=== PATIENT | female | born 1990 | race Caucasian/White ===

== ENCOUNTER → 2018-09-15 08:33 | Outpatient (CLI) | payer BC, SELFPAY ==
[2018-09-15 08:05] VITALS: BMI 39.6
[2018-09-15 09:50] LABS: hCG Titer Quant., Serum < 1 mIU/mL (<9 non-preg)
== END ==
PROVIDERS: Visit Provider Obstetrics & Gynecology
DX: O46.90 Antepartum hemorrhage, unspecified, unspecified trimester (principal); Z3A.00 Weeks of gestation of pregnancy not specified
CPT/HCPCS: 36415; 84702; 86850; 86900

== ENCOUNTER → 2019-06-16 17:41 | Outpatient (CLI) | payer BC, SELFPAY ==
[2019-06-16 15:50] VITALS: BMI 39.1
== END ==
PROVIDERS: Referring Provider Obstetrics & Gynecology; Visit Provider Obstetrics & Gynecology
DX: Z34.80 Encounter for supervision of other normal pregnancy, unspecified trimester (principal)
CPT/HCPCS: 87086; 87088

== ENCOUNTER → 2019-07-17 11:29 | Outpatient (CLI) | payer BC, SELFPAY ==
[2019-07-17 10:14] VITALS: BMI 39.6
[2019-07-17 13:06] LABS: Absolute Lymphocyte Count 1.94 X10^3/uL (0.83-4.51); Basophil# 0.05 X10^3/uL; Basophil% 0.6 % (0-1); Eosinophils% 4.5 % (0-5); Hematocrit 40.1 % (37-47); Hemoglobin 13.1 g/dL (12.0-15.0); Lymphocyte # 1.94 X10^3/ul (4.0); Mean Corp Hgb Conc 32.7 g/dL (32-36); Mean Corpuscular Hgb 28.1 pg (27.0-32.0); Mean Corpuscular Volume 85.9 fL (81-99); Mean Platelet Vol. 9.9 fl (6.2-12.0); Monocyte# 0.38 X10^3/uL; Monocyte% 4.3 % (0-10); NRBC Flagged by Analyzer 0 % (0-5); Neutrophil # 5.98 X10^3/uL (2.7-7.7); Platelet Count 310 K/mm3 (150-450); RBC Distribution Width CV 12.8 % (11.6-14.6); RBC Distribution Width SD 39.8 fl (35.1-43.9); Red Blood Count 4.67 M/mm3 (4.2-5.4); White Blood Count 8.8 K/mm3 (4.4-11.0)
[2019-07-17 13:31] LABS: Glucose 231 mg/dL (74-106)
[2019-07-17 14:11] LABS: Amphetamine Urine VISTA NEGATIVE (<1000 ng/mL); Barbiturate Urine VISTA NEGATIVE (< 200 ng/mL); Benzodiazepine Urine VISTA NEGATIVE (< 200 ng/mL); Cocaine Urine VISTA NEGATIVE (< 300 ng/mL); Ecstacy Urine VISTA NEGATIVE (< 500 ng/mL); Methadone Urine VISTA NEGATIVE (< 300 ng/mL); PCP Urine VISTA NEGATIVE (< 25 ng/mL); THC Urine VISTA NEGATIVE (< 50 ng/mL); Vista UDS pH Range 5
[2019-07-17 14:27] LABS: HIV - WCH Non-Reactive (Nonreactive); Hepatitis B Surface Antigen Non-Reactive (Nonreactive); Hepatitis C Antibody Non-Reactive (Nonreactive); Rubella IgG 50.6 IU/mL
[2019-07-17 14:41] LABS: ALB/GLOB Ratio 0.8 RATIO (0.9-2.4); AST(SGOT) 16 U/L (15-37); Alanine Aminotransfer ALT/SGPT 18 U/L (13-56); Albumin, Serum 3.2 g/dL (3.2-5.0); Alkaline Phosphatase 65 U/L (45-117); Anion Gap 6 (5-15); BUN 5 mg/dL (7-18); BUN/Creat Ratio 7.9 RATIO (10-20); Calcium,Total 8.8 mg/dL (8.5-10.1); Chloride 105 mmol/L (98-107); Creatinine, Serum 0.63 mg/dL (0.55-1.02); EST Glomerular Filtration Rate 116 mL/min (>60); Est Glom Filt Rate - Afr Amer 141 mL/min (>60); Globulin 4.1 g/dL (2.2-4.2); Glucose 241 mg/dL (74-106); Potassium 3.7 mmol/L (3.5-5.1); Protein, Total 7.3 g/dL (6.4-8.2); Sodium Level 135 mmol/L (136-145)
[2019-07-17 14:47] LABS: Hemoglobin A1c 7.6 % (4.2-6.3)
[2019-07-17 15:46] LABS: Chlamydia Trachomatis by PCR Negative (Negative); Neisserai gonorrhoeae by PCR Negative (Negative); Probe Check PASS; Sample Adequacy Control PASS; Specimen Processing Control PASS
[2019-07-22 20:50] LABS: HPV APTIMA, High Risk Negative (Negative)
[2019-07-23 02:55] LABS: Rapid Plasmin Reagin (RPR) NONREACTIVE (NONREACTIVE)
== END ==
LOC: PAVLAB 11:31 → LAB 11:37
PROVIDERS: Referring Provider Obstetrics & Gynecology; Visit Provider Obstetrics & Gynecology
DX: Z12.4 Encounter for screening for malignant neoplasm of cervix (principal); O99.210 Obesity complicating pregnancy, unspecified trimester; O24.419 Gestational diabetes mellitus in pregnancy, unspecified control
CPT/HCPCS: 36415; 80053; 80307; 82947; 83036; 85025; 86592; 86703; 86762; 86803; 86850; 86900; 86901; 87086; 87088; 87340; 87491; 87591; 87624; 88175; G0145

== ENCOUNTER → 2019-07-24 10:49 | Outpatient (CLI) | payer BC, SELFPAY ==
[2019-07-17 10:14] VITALS: BMI 39.6
--- NOTE | 2019-07-24 10:55 | EKG12_ITS ---
Test Reason : NEW DIABETIC, PREG Blood Pressure : / mmHG Vent. Rate : 087 BPM Atrial Rate : 087 BPM P-R Int : 136 ms QRS Dur : 084 ms QT Int : 366 ms P-R-T Axes : 036 052 015 degrees QTc Int : 440 ms Sinus rhythm with Premature atrial complexes Low voltage QRS Borderline ECG Confirmed by VON ARAGON, JIMENA ([id number]), manuscript editor ELISHA WAY ([id number]) on 07/27/2019 12:22:14 PM Referred By: Adriana Read Confirmed By:JIMENA LONGORIA MD
[2019-07-24 13:36] LABS: Protein, Urine (Random) < 6.0 mg/dL (<11.9)
[2019-07-24 13:50] LABS: Thyroid Stim Hormone (TSH) 4.03 uIU/mL (0.358-3.74)
[2019-07-25 15:25] LABS: Thyroid Peroxidase AB 268 IU/mL (0-34)
== END ==
PROVIDERS: Internal Medicine Endocrinology, Diabetes & Metabolism; Referring Provider Obstetrics & Gynecology; Visit Provider Obstetrics & Gynecology
DX: O24.419 Gestational diabetes mellitus in pregnancy, unspecified control (principal); E04.9 Nontoxic goiter, unspecified; Z3A.00 Weeks of gestation of pregnancy not specified
CPT/HCPCS: 36415; 82570; 84156; 84443; 86376; 93005

== ENCOUNTER 2019-08-03 13:56 | Outpatient (RCR) | payer BC, SELFPAY ==
[2019-07-24 11:02] VITALS: BMI 39.6
== END 2019-08-07 23:59 | disposition home or self-care (01) ==
LOC: DC 13:56
PROVIDERS: Visit Provider Internal Medicine Endocrinology, Diabetes & Metabolism
DX: Z71.3 Dietary counseling and surveillance (principal); O24.111 Pre-existing type 2 diabetes mellitus, in pregnancy, first trimester
CPT/HCPCS: 97802

== ENCOUNTER → 2019-08-14 11:41 | Outpatient (CLI) | payer BC, SELFPAY ==
[2019-08-14 11:29] VITALS: BMI 39.6
[2019-08-14 12:45] LABS: NATERA MAILED SPECIMEN
== END ==
PROVIDERS: Referring Provider Obstetrics & Gynecology; Visit Provider Obstetrics & Gynecology
DX: Z34.81 Encounter for supervision of other normal pregnancy, first trimester (principal); Z31.430 Encounter of female for testing for genetic disease carrier status for procreative management; Z36.9 Encounter for antenatal screening, unspecified

== ENCOUNTER 2019-08-26 10:00 | Outpatient (RCR) | payer BC, SELFPAY ==
[2019-07-24 11:02] VITALS: BMI 39.6
== END 2019-09-05 23:59 ==
LOC: DC 10:00
PROVIDERS: Visit Provider Internal Medicine Endocrinology, Diabetes & Metabolism
DX: Z71.3 Dietary counseling and surveillance (principal); O24.111 Pre-existing type 2 diabetes mellitus, in pregnancy, first trimester

== ENCOUNTER 2019-09-07 10:13 | Outpatient (RCR) | payer BC, SELFPAY ==
[2019-09-04 09:46] VITALS: BMI 39.6
== END 2019-10-06 23:59 ==
LOC: DC 10:13
PROVIDERS: Visit Provider Internal Medicine Endocrinology, Diabetes & Metabolism
DX: Z71.3 Dietary counseling and surveillance (principal); O24.111 Pre-existing type 2 diabetes mellitus, in pregnancy, first trimester; Z3A.00 Weeks of gestation of pregnancy not specified

== ENCOUNTER → 2019-09-17 11:57 | Outpatient (CLI) | payer BC, SELFPAY ==
[2019-09-09 09:58] VITALS: BMI 39.6
[2019-09-17 13:13] LABS: T4 Free Direct 1.04 ng/dL (0.76-1.46)
== END ==
PROVIDERS: Referring Provider Internal Medicine Endocrinology, Diabetes & Metabolism; Visit Provider Internal Medicine Endocrinology, Diabetes & Metabolism
DX: E03.9 Hypothyroidism, unspecified (principal)
CPT/HCPCS: 36415; 84439; 84443

== ENCOUNTER 2019-11-16 13:52 | Outpatient (RCR) | payer BC, SELFPAY ==
[2019-09-09 09:58] VITALS: BMI 39.6
[2019-10-07 10:14] VITALS: BMI 39.6
== END 2019-11-16 23:59 | disposition home or self-care (01) ==
LOC: DC 13:52
PROVIDERS: Visit Provider Internal Medicine Endocrinology, Diabetes & Metabolism
DX: Z71.3 Dietary counseling and surveillance (principal); O24.111 Pre-existing type 2 diabetes mellitus, in pregnancy, first trimester; Z3A.00 Weeks of gestation of pregnancy not specified

== ENCOUNTER → 2019-11-17 09:01 | Outpatient (CLI) | payer BC, SELFPAY ==
[2019-10-07 10:14] VITALS: BMI 39.6
--- NOTE | 2019-11-17 09:02 | US_ITS ---
STUDY: SECOND AND THIRD TRIMESTER OBSTETRICAL ULTRASOUND - LIMITED REASON FOR EXAM: Female, 29 years old GROWTH -- HX OF DIABETES LMP: April 26, 2019. PRIOR ULTRASOUND: None. TECHNIQUE: Transabdominal TECHNICAL QUALITY: Adequate. FINDINGS: There is a single intrauterine fetus. The fetus is in a breech presentation. There is demonstrated cardiac activity with a heart rate of 156 bpm. There is a normal amniotic fluid volume. The largest amniotic fluid pocket measures 5.6 cm x 3 cm. The amniotic fluid index (LUCINDA) is 20.13 cm. The placenta is anterior in location and is not low lying. There are Grade 1 placental changes. The cervix measures 4.4 cm in length. BIOMETRY: BPD: 7.59 cm: 30 weeks, 3 days HC: 28.26 cm: 30 weeks, 6 days AC: 25.29 cm: 29 weeks, 3 days FL: 5.66 cm: 29 weeks, 5 days Age by LMP: 29 weeks, 2 days. HANNAH by LMP: January 31, 2020. age by current US: 30 weeks, 0 days. HANNAH by current US: January 26, 2020. Estimated weight: 1453 grams, +/- 215 grams, 54.74 percentile. US/OB Limited With Biometrics IMPRESSION: Single live intrauterine gestation with a mean gestational age of 30 weeks. Electronically Signed: Segundo Cadena, at 10:07 EDT , Service support ,
== END ==
PROVIDERS: Referring Provider Obstetrics & Gynecology; Visit Provider Obstetrics & Gynecology
DX: O24.912 Unspecified diabetes mellitus in pregnancy, second trimester (principal); Z3A.00 Weeks of gestation of pregnancy not specified
CPT/HCPCS: 76816

== ENCOUNTER → 2019-12-01 10:07 | Outpatient (CLI) | payer BC, SELFPAY ==
[2019-12-01 09:55] VITALS: BMI 39.6
[2019-12-01 10:30] LABS: Absolute Lymphocyte Count 1.84 X10^3/uL (0.83-4.51); Absolute Neutrophil Count 10.2 X10^3/uL (2.0-7.7); Basophil# 0.06 X10^3/uL; Basophil% 0.4 % (0-1); Eosinophil# 0.34 X10^3/uL; Eosinophils% 2.5 % (0-5); Hematocrit 37.7 % (37-47); Hemoglobin 12.5 g/dL (12.0-15.0); Lymphocyte # 1.84 X10^3/ul (4.0); Lymphocyte % 13.8 % (19-41); Mean Corp Hgb Conc 33.2 g/dL (32-36); Mean Corpuscular Hgb 27.9 pg (27.0-32.0); Mean Corpuscular Volume 84.2 fL (81-99); Mean Platelet Vol. 9.9 fl (6.2-12.0); Monocyte# 0.81 X10^3/uL; Monocyte% 6.1 % (0-10); NRBC Flagged by Analyzer 0 % (0-5); Neutrophil # 10.18 X10^3/uL (2.7-7.7); Neutrophil % 76.3 % (47-70); Platelet Count 310 K/mm3 (150-450); RBC Distribution Width CV 13.9 % (11.6-14.6); RBC Distribution Width SD 42.2 fl (35.1-43.9); Red Blood Count 4.48 M/mm3 (4.2-5.4); White Blood Count 13.4 K/mm3 (4.4-11.0)
== END ==
PROVIDERS: Referring Provider Obstetrics & Gynecology; Visit Provider Obstetrics & Gynecology
DX: Z34.80 Encounter for supervision of other normal pregnancy, unspecified trimester (principal)
CPT/HCPCS: 36415; 85025

== ENCOUNTER → 2019-12-10 08:11 | Outpatient (CLI) | payer BC, SELFPAY ==
[2019-11-27 09:57] VITALS: BMI 39.6
[2019-12-07 09:11] VITALS: BMI 39.6
--- NOTE | 2019-12-10 08:23 | US_ITS ---
STUDY: SECOND AND THIRD TRIMESTER OBSTETRICAL ULTRASOUND - LIMITED REASON FOR EXAM: Female, 29 years old LUCINDA LMP: April 25, 2019. PRIOR ULTRASOUND: Comparison is made with prior examination dated November 17, 2019. TECHNIQUE: Transabdominal TECHNICAL QUALITY: Adequate. FINDINGS: There is a single intrauterine fetus. The fetus is in a cephalic presentation. There is demonstrated cardiac activity with a heart rate of 155 bpm. There is a normal amniotic fluid volume. The largest amniotic fluid pocket measures 5.5 cm. The amniotic fluid index (LUCINDA) is 14.51 cm. The placenta is anterior in location and is not low lying. There are Grade 1 placental changes. The cervix measures 3.3 cm in length. Age by LMP: 32 weeks, 4 days. HANNAH by LMP: January 31, 2020. age by prior US: 33 weeks, 3 days. HANNAH by prior US: January 07, 2020. US/OB Limited (No Biometrics) IMPRESSION: Normal amniotic fluid. Electronically Signed: Segundo Cadena, at 12:15 EDT , Service support ,
== END ==
PROVIDERS: Referring Provider Obstetrics & Gynecology; Visit Provider Obstetrics & Gynecology
DX: O24.912 Unspecified diabetes mellitus in pregnancy, second trimester (principal); O99.212 Obesity complicating pregnancy, second trimester; Z3A.33 33 weeks gestation of pregnancy
CPT/HCPCS: 76815

== ENCOUNTER → 2019-12-17 | Outpatient (CLI) | payer BC, SELFPAY ==
[2019-11-27 09:57] VITALS: BMI 39.6
[2019-12-15 09:05] VITALS: BMI 39.6
--- NOTE | 2019-12-17 09:00 | US_ITS ---
STUDY: SECOND AND THIRD TRIMESTER OBSTETRICAL ULTRASOUND REASON FOR EXAM: Female, 29 years old lucinda only LMP: April 26, 2019 TECHNIQUE: Transabdominal TECHNICAL QUALITY: Adequate. PRIOR ULTRASOUND: Comparison is made with prior examination dated December 10, 2019. FINDINGS: There is a single intrauterine fetus. The fetus is in a cephalic presentation. There is demonstrated cardiac activity with a heart rate of 177 bpm. There is a normal amniotic fluid volume. The largest amniotic fluid pocket measures 6.0 cm. The amniotic fluid index (LUCINDA) is 16.0 cm. The placenta is anterior in location and is not low lying. There are Grade 1 placental changes. The adnexal regions are not visualized. Age by LMP: 33 weeks, 4 days. HANNAH by LMP: January 31, 2020. US/OB Limited (No Biometrics) IMPRESSION: Normal amniotic fluid. Electronically Signed: Segundo Cadena, at 14:10 EDT , Service support ,
== END | disposition home or self-care (01) ==
PROVIDERS: Referring Provider Obstetrics & Gynecology; Visit Provider Obstetrics & Gynecology
DX: O24.912 Unspecified diabetes mellitus in pregnancy, second trimester (principal); O99.210 Obesity complicating pregnancy, unspecified trimester; Z3A.00 Weeks of gestation of pregnancy not specified
CPT/HCPCS: 76815

== ENCOUNTER → 2019-12-25 08:46 | Outpatient (CLI) | payer BC, SELFPAY ==
[2019-11-27 09:57] VITALS: BMI 39.6
[2019-12-23 09:09] VITALS: BMI 39.6
--- NOTE | 2019-12-25 08:52 | US_ITS ---
PROCEDURE: SECOND AND THIRD TRIMESTER OBSTETRICAL ULTRASOUND - LIMITED REASON FOR EXAM: Female, 29 years old. assessment LMP: 04/26/2019 PRIOR ULTRASOUND: 11/17/2019 TECHNIQUE: Transabdominal ultrasound evaluation was performed. FINDINGS: There is a single intrauterine fetus. The fetus is in a cephalic presentation. There is demonstrated cardiac activity with a heart rate of 158 bpm. There is a normal amniotic fluid volume. The largest amniotic fluid pocket measures 3.4 cm. The amniotic fluid index (LUCINDA) is 9.9 cm. The placenta is anterior in location and is not low lying. There are Grade 2 placental changes. The cervix measures 3.5 cm in length. BIOMETRY: BPD: 8.47 cm: 34 weeks, 0 days HC: 31.5 cm: 35 weeks, 1 days AC: 30.7 cm: 34 weeks, 4 days FL: 6.7 cm: 34 weeks, 1 days Age by LMP: 34 weeks, 5 days. HANNAH by LMP: 01/31/2020. age by prior US: 35 weeks, 3 days. HANNAH by prior US: 01/26/2020. age by current US: 34 weeks, 4 days. HANNAH by current US: 02/01/2020. Estimated weight: 2457 grams, +/- 364 grams, 38 percentile. US/OB Limited With Biometrics IMPRESSION: Viable 34 weeks 4 days gestation with heart motion 158 BPM. Amniotic fluid index of 9.9 cm. Estimated weight: 2457 grams, +/- 364 grams, 38 percentile. Electronically Signed: Doroteo Garcia MD at 9:19 EDT Tel [phone], Service support ,
== END ==
PROVIDERS: Referring Provider Obstetrics & Gynecology; Visit Provider Obstetrics & Gynecology
DX: O24.912 Unspecified diabetes mellitus in pregnancy, second trimester (principal); Z3A.34 34 weeks gestation of pregnancy
CPT/HCPCS: 76816

== ENCOUNTER → 2019-12-31 09:03 | Outpatient (CLI) | payer BC, SELFPAY ==
[2019-11-27 09:57] VITALS: BMI 39.6
[2019-12-29 10:33] VITALS: BMI 39.6
--- NOTE | 2019-12-31 09:11 | US_ITS ---
STUDY: SECOND AND THIRD TRIMESTER OBSTETRICAL ULTRASOUND-Limited REASON FOR EXAM: Female, 29 years old LUCINDA LMP: 04/26/2019 TECHNIQUE: Transabdominal TECHNICAL QUALITY: Adequate. PRIOR ULTRASOUND: 12/25/2019 FINDINGS: There is a single intrauterine fetus. The fetus is in a cephalic presentation. There is demonstrated cardiac activity with a heart rate of 155 bpm. There is a normal amniotic fluid volume. The largest amniotic fluid pocket measures 7.4 cm. The amniotic fluid index (LUCINDA) is 12.9 cm. The placenta is anterior in location and is not low lying. There are Grade 2 placental changes. The cervix measures 3.9 cm in length. The adnexal regions are not visualized. age by current US: 35 weeks, 4 days. HANNAH by current US: 01/31/2020. age by prior US: 35 weeks, 4 days. HANNAH by prior US: 01/31/2020. Age by LMP: 35 weeks, 3 days. HANNAH by LMP: 02/01/2020. US/OB Limited (No Biometrics) IMPRESSION: Single live intrauterine at 35 weeks, 4 days by current ultrasound with HANNAH of 01/31/2020. Heart rate at 155 bpm. No suspicious sonographic findings, normal growth noted since the previous study. LUCINDA measures 12.9 with largest pocket measuring 7.4 Electronically Signed: Bishop Orr MD at 11:06 EDT , Service support ,
== END ==
PROVIDERS: Referring Provider Obstetrics & Gynecology; Visit Provider Obstetrics & Gynecology
DX: O09.90 Supervision of high risk pregnancy, unspecified, unspecified trimester (principal); Z3A.35 35 weeks gestation of pregnancy
CPT/HCPCS: 76815

== ENCOUNTER → 2020-01-07 09:01 | Outpatient (CLI) | payer BC, SELFPAY ==
[2019-11-27 09:57] VITALS: BMI 39.6
[2020-01-05 12:46] VITALS: BMI 39.6
--- NOTE | 2020-01-07 09:06 | US_ITS ---
STUDY: SECOND AND THIRD TRIMESTER OBSTETRICAL ULTRASOUND REASON FOR EXAM: Female, 29 years old lucinda LMP: April 26, 2019. TECHNIQUE: Transabdominal TECHNICAL QUALITY: Adequate. PRIOR ULTRASOUND: Comparison is made with prior study dated December 31, 2019. FINDINGS: There is a single intrauterine fetus. The fetus is in a cephalic presentation. There is demonstrated cardiac activity with a heart rate of 137 bpm. There is a normal amniotic fluid volume. The largest amniotic fluid pocket measures 4.2 cm. The amniotic fluid index (LUCINDA) is 11.2 cm. The placenta is anterior in location and is not low lying. There are Grade 2 placental changes. The cervix measurement was not obtainable due to the head position. The adnexal regions are not visualized. age by prior US: 36 weeks, 4 days. HANNAH by prior US: January 31, 2020. Age by LMP: 36 weeks, 4 days. HANNAH by LMP: January 31, 2020. ANATOMY: The umbilical cord is seen along the posterior and lateral aspect of the neck. US/OB Limited (No Biometrics) IMPRESSION: Normal amniotic fluid index. Electronically Signed: Segundo Cadena, at 9:59 EDT , Service support ,
== END ==
PROVIDERS: Referring Provider Obstetrics & Gynecology; Visit Provider Obstetrics & Gynecology
DX: O09.92 Supervision of high risk pregnancy, unspecified, second trimester (principal); O24.912 Unspecified diabetes mellitus in pregnancy, second trimester; O99.212 Obesity complicating pregnancy, second trimester; Z3A.00 Weeks of gestation of pregnancy not specified
CPT/HCPCS: 76815; 87081

== ENCOUNTER → 2020-01-15 09:00 | Outpatient (CLI) | payer BC, SELFPAY ==
[2019-11-27 09:57] VITALS: BMI 39.6
[2020-01-12 11:55] VITALS: BMI 39.6
--- NOTE | 2020-01-15 09:02 | US_ITS ---
STUDY: SECOND AND THIRD TRIMESTER OBSTETRICAL ULTRASOUND - LIMITED REASON FOR EXAM: Female, 29 years old lucinda LMP: April 26, 2019. PRIOR ULTRASOUND: Comparison is made with prior study dated January 07, 2020. TECHNIQUE: Transabdominal TECHNICAL QUALITY: Adequate. FINDINGS: There is a single intrauterine fetus. The fetus is in a cephalic presentation. There is demonstrated cardiac activity with a heart rate of 132 bpm. There is a normal amniotic fluid volume. The largest amniotic fluid pocket measures 4.1 cm. The amniotic fluid index (LUCINDA) is 9.4 cm. The placenta is anterior in location and is not low lying. There are Grade 2 placental changes. The cervix was not visualized due to the head positioning. Age by LMP: 37 weeks, 5 days. HANNAH by LMP: January 31, 2020. US/OB Limited (No Biometrics) IMPRESSION: Normal amniotic fluid index. Electronically Signed: Segundo Cadena, at 13:41 EDT , Service support ,
== END ==
PROVIDERS: Referring Provider Obstetrics & Gynecology; Visit Provider Obstetrics & Gynecology
DX: O24.912 Unspecified diabetes mellitus in pregnancy, second trimester (principal); Z3A.37 37 weeks gestation of pregnancy
CPT/HCPCS: 76815

== ENCOUNTER → 2020-01-22 08:55 | Outpatient (CLI) | payer BC, SELFPAY ==
[2019-11-27 09:57] VITALS: BMI 39.6
[2020-01-19 10:01] VITALS: BMI 39.6
--- NOTE | 2020-01-22 09:01 | US_ITS ---
STUDY: SECOND AND THIRD TRIMESTER OBSTETRICAL ULTRASOUND- LIMITED REASON FOR EXAM: Female, 29 years old GROWTH LMP: 04/26/2019 TECHNIQUE: Transabdominal TECHNICAL QUALITY: Adequate. PRIOR ULTRASOUND: 01/15/2020 FINDINGS: There is a single intrauterine fetus. The fetus is in a cephalic presentation. There is demonstrated cardiac activity with a heart rate of 153 bpm. There is a normal amniotic fluid volume. The largest amniotic fluid pocket measures 4.61 cm. The amniotic fluid index (LUCINDA) is 11.85 cm. The placenta is anterior in location and is not low lying. There are Grade 3 placental changes. The cervix was not measured. BIOMETRY: BPD: 9.05cm: 36 weeks, 4 days HC: 35.63 cm: 41 weeks, 5 days AC: 34.65cm: 38 weeks, 3 days FL: 7.35cm: 37 weeks, 4 days age by current US: 38 weeks, 4 days. HANNAH by current US: 02/01/20. Estimated weight: 3499 grams, +/- 518 grams, 58 %. age by prior US: 38 weeks, 4 days. HANNAH by prior US: 02/01/20. Age by LMP: 38 weeks, 5 days. HANNAH by LMP: 01/31/20. US/OB Limited With Biometrics IMPRESSION: Single live IUP at 38 weeks 4 days with HANNAH of 02/01/2020. HR at 153bpm, no suspicious findings, normal growth noted since the previous exam. Electronically Signed: Bishop Orr MD at 7:52 EDT , Service support ,
== END ==
PROVIDERS: Referring Provider Obstetrics & Gynecology; Visit Provider Obstetrics & Gynecology
DX: O09.90 Supervision of high risk pregnancy, unspecified, unspecified trimester (principal); Z3A.00 Weeks of gestation of pregnancy not specified
CPT/HCPCS: 76816

== ENCOUNTER 2020-01-24 19:00 | Inpatient (IN) | payer BC, SELFPAY ==
[2019-12-31 10:38] VITALS: BMI 39.6
[2020-01-22 10:39] VITALS: BMI 39.6
[2020-01-24] VITALS (14 sets, daily range): BP systolic 116–129; BP diastolic 55–70; PULSE 87–125; TEMP 36.4–37.2; O2SAT 97–98; BMI 39.9
[2020-01-24] MEDS: Lactated Ringers 1,000 ML 50 ML IV (19:25)
[2020-01-24 19:51] LABS: Absolute Lymphocyte Count 2.64 X10^3/uL (0.83-4.51); Absolute Neutrophil Count 10.2 X10^3/uL (2.0-7.7); Basophil# 0.05 X10^3/uL; Basophil% 0.4 % (0-1); Eosinophil# 0.23 X10^3/uL; Eosinophils% 1.6 % (0-5); Hematocrit 36.9 % (37-47); Hemoglobin 12.1 g/dL (12.0-15.0); Lymphocyte # 2.64 X10^3/ul (4.0); Lymphocyte % 18.9 % (19-41); Mean Corp Hgb Conc 32.8 g/dL (32-36); Mean Corpuscular Hgb 27.9 pg (27.0-32.0); Mean Corpuscular Volume 85.2 fL (81-99); Mean Platelet Vol. 10.8 fl (6.2-12.0); Monocyte# 0.77 X10^3/uL; Monocyte% 5.5 % (0-10); NRBC Flagged by Analyzer 0 % (0-5); Neutrophil # 10.23 X10^3/uL (2.7-7.7); Neutrophil % 73.1 % (47-70); Platelet Count 318 K/mm3 (150-450); RBC Distribution Width CV 14.6 % (11.6-14.6); RBC Distribution Width SD 44.6 fl (35.1-43.9); Red Blood Count 4.33 M/mm3 (4.2-5.4)
[2020-01-24 20:01] LABS: Bedside Glucose 106 mg/dL (70-110)
[2020-01-24] MEDS: 0.9% Normal Saline Single 100 ML IV.SOLN. IY (21:18)
[2020-01-24] MEDS: Oxytocin 30 units/NS 500 ml 30 UNITS/500 ML IV.SOLN IV (21:39)
[2020-01-24 22:01] LABS: Probe Check PASS; Specimen Processing Control PASS
[2020-01-25] VITALS (55 sets, daily range): BP systolic 110–165; BP diastolic 56–100; PULSE 77–115; TEMP 36.1–37.4; O2SAT 97–100
[2020-01-25 00:15] LABS: Bedside Glucose 71 mg/dL (70-110)
[2020-01-25 04:21] LABS: Bedside Glucose 81 mg/dL (70-110)
[2020-01-25] MEDS: Acetaminophen 325 MG Tablet PO (04:59)
[2020-01-25 08:10] LABS: Bedside Glucose 86 mg/dL (70-110)
[2020-01-25] MEDS: Oxytocin 30 units/NS 500 ml 30 UNITS/500 ML IV.SOLN 26 UNITS IV (11:59)
[2020-01-25 12:05] LABS: Bedside Glucose 77 mg/dL (70-110)
[2020-01-25] MEDS: Lactated Ringers 500 ML 999 ML IV ×2 (12:06→14:15)
[2020-01-25] MEDS: Lactated Ringers 1,000 ML 50 ML IV (12:10)
--- NOTE | 2020-01-25 13:04 | HP.PCM_ITS ---
- Problem List (1) Encounter for induction of labor Status: Acute (2) Supervision of high risk , antepartum Status: Acute Comment: PRR HANNAH 01/31/20 Yessi, gender surprise (3) Diabetes mellitus affecting in second trimester Status: Acute Comment: weekly lucinda, twice weekly NST through delivery. insulin. preexisting most likely, diagnosed 1 TM, sees dr sumner. nl baseline labs urine protein CR (4) Hypothyroid Status: Acute Qualifiers: Comment: synthroid, managed by dr sumner (5) Atypical squamous cells of undetermined significance (ASC-US) on cervical Pap smear Status: Acute Comment: HPV negative-Repeat pap in 2022 (6) Cleft lip and cleft palate, left Status: Acute Comment: nl targeted MFM anatomy US (7) Obesity affecting Status: Acute Qualifiers: Comment: 1 tm glucola abnl, encouraged healthy weight gain, recommend 81 mg aspirin daily (8) Status: Acute Qualifiers: Comment: genetic and carrier low risk, neg 14/14US with . nl AFP screen. nl anatomy and echo. History and Physical Date of Admission: 01/24/20 MR#:[id number]:[id number] Name: JONATHAN MYERS #:[id number] :1990 Provider:Dr. 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 Is patient in pain?: No Allergies Penicillins Allergy (Mild, Verified 01/22/20 10:38) Other Medications cetirizine 10 mg capsule 10 mg PO DAILY 09/15/18 [History Confirmed 01/22/20] vitamin#30 30 mg iron-10 mg iron-folic acid 1 mg-omg3 capsule cap PO cap 09/15/18 [History Confirmed 01/22/20] blood sugar diagnostic See Rx Instructions .ROUTE .MEDSUPPLY #120 ea 07/17/19 [Rx Confirmed 01/22/20] blood-glucose meter See Rx Instructions .ROUTE .MEDSUPPLY #1 ea 07/17/19 [Rx Confirmed 01/22/20] levothyroxine 112 mcg tablet 112 mcg PO DAILY #30 tab 07/24/19 [Rx Confirmed 01/22/20] aspirin 81 mg chewable tablet 81 mg PO DAILY 09/04/19 [History Confirmed 01/22/20] diphenhydramine HCl 25 mg tablet 25 mg PO TID PRN 12/01/19 [History Confirmed 01/22/20] pen needle, diabetic 33 gauge x 5/32 See Rx Instructions .ROUTE .MEDSUPPLY #100 ea 12/17/19 [Rx Confirmed 01/22/20] insulin NPH isoph U-100 human 100 unit/mL (3 mL) subcutaneous pen 50 unit SC BID ml 01/22/20 [History Confirmed 01/22/20] insulin aspart U-100 100 unit/mL (3 mL) subcutaneous pen 10 unit SC .at dinner ml 01/22/20 [History Confirmed 01/22/20] Last Menstral Period: 04/26/19 Zika: Zika virus screening: Negative : No PFSH PFSH Medical History Cleft lip and cleft palate, left (Acute) Gum graft (Acute ~2018) Surgical History History of oral surgery (Acute) Family History Mother CVA (cerebral vascular accident) Father Diabetes Social History (Updated 01/23/20 @ 02:[address] Adriana Read MD) adopted: No household members: spouse housing: house current occupational status: employed current occupation: [employer] pets and animals: Yes sexually active: Yes Smoking Status: Never smoker second hand exposure: No alcohol intake: never substance use type: does not use caffeine: Yes what type of physical activity do you participate in: walking seatbelt use: always do you feel safe at home: Yes additional social history: [employer] work Pregancy History 2 Elective abortions Hx Para Spontaneous abortions 1 Hx # Term Pregnancies Ectopic pregnancies Hx # Pregnancies Multiple births # of living children 0 HPI 38 WK OB/NST: Details: JONATHAN MYERS is a 29 year old who presents for routine OB visit. OB Visit HANNAH Calculator Estimated Delivery Date Method Current WG Current Estimate 01/31/20 LMP (Certain) 38w 6d Expected Delivery Route/Plan Labor Preferences- labor support person: YESSI pain management options preferred: EPIDURAL cut cord/dad catch: cord : yes PP control planned: vasectomy discussed possible routes of delivery and associated risks: [] special requests: [] Specific Issue/Plans flu vaccine: given tdap vaccine: given rhogam: na LARC form signed: yes movement and labor precautions reviewed. Problem list reviewed and updated with the most current plan of care details and appropriate orders placed. Relevant counseling for the gestational age provided. Continue routine care and follow up unless otherwise noted in visit notes/problem list details Initial Weight: 214 lb Date EGA Weight BP Urine Prot Glucose FHR FuHt Pres Dilation Effaced St Visit Note 07/17/19 11w 5d 214 lb (+0 oz) 130/82 160 SM no vb cramping 08/14/19 15w 5d 208 lb (-6 lb) 126/84 Negative Negative 160 SM- no vb cramping SM- no vb cramping, blood sugars well controlled seeing endocrine. nipt carrier and ntd screen today, will see opthamology soon. 09/09/19 19w 3d 210 lb (-4 lb) 110/84 Negative Negative 148 MH:glucose well controlled. Recent visit Dr. Sumner. No VB, LOF. Has not felt FM yet. US scheduled 09/16. 10/07/19 23w 3d 211 lb (-3 lb) 122/84 145 SM- no vb lof good fm no regular ctx reviewed scan and BS 11/27/19 30w 5d 207 lb (-7 lb) 118/84 Negative Negative 145 31 SM- no vb lof good fm no regular ctx BS well controlled. cbc tdap. 12/10/19 32w 4d 209 lb (-5 lb) 126/78 Negative Negative 150 32 MH-No Vb, LOF. BS well controlled. Reactive NST 12/15/19 33w 2d 209 lb (-5 lb) Negative Negative 140 Reactive NST. BS well controlled 12/17/19 33w 4d 210 lb 8 oz (-3 lb 8 oz) 130/86 Negative Negative 148 34 MH-slight increase of BS-Dr. Sumner aware. Good FM. NO VB, LOF or CTX. LUCINDA WNL today 12/23/19 34w 3d 209 lb (-5 lb) 140 nst today 12/25/19 34w 5d 211 lb 6 oz (-2 lb 10 oz) 124/80 Negative Negative 130 12/29/19 35w 2d 213 lb (-16 oz) 120/82 Negative Negative 150 MH-reactive NST 01/04/20 36w 1d 214 lb (+0 oz) 114/88 Negative Negative 145 MH NST reactive 01/07/20 36w 4d 213 lb 4 oz (-12 oz) 118/86 Negative Negative 140 no vb lof good fm no regular ctx bs controlled 01/12/20 37w 2d 215 lb (+16 oz) 116/86 Negative Negative 150 MH reactive NST 01/15/20 37w 5d 213 lb 6 oz (-10 oz) 124/78 Negative Negative 140 1 40 -3 SM- no vb lof good fm no regular ctx bs controlled 01/19/20 38w 2d 120/88 Negative Negative 135 MH-reactive NST only 01/22/20 38w 5d 213 lb 6 oz (-10 oz) 136/88 Negative Negative 140 Cephalic SM- no vb lof good fm no regular ctx ACOG First Trimester First Trimester: Desire for , Alcohol, Tobacco Cessation, Illici t/Recreational Drug/Substance Use, Intimate Partner Violence, Barriers to care, Unstable Housing, Communication Barriers, Environmental/Work Hazards, Anticipated Course of Care, Toxoplasmosis Precations, Use of Any medications, Sexual activity, Exercise, Dental Care, Sauna/Hot tub use, Seat Belt use, Childbirth classes/Hospital facilities, , Travel, Indications for US and Screening for Aneuploidy Second Trimester Second Trimester: Signs and Symptoms of Labor, Selecting a care provider, Reproductive Life Planning, Care Planning, Tobacco Cessation, Depression/Anxiety and Intimate Partner Violence Third Trimester Third Trimester: Pain Management Plans, Labor support person(s), Immediate Larc, Movement Monitoring and Infant Feeding Yes ; discussed Trial of Labor after Counseling or discussed Circumcision preference Diagnostics Diagnostics Details: HIV: Urine Culture: Sequential Screen: NIPT Screen: ROS Const Reports system reviewed and no additional complaints, except as docu Card Reports system reviewed and no additional complaints, except as docu Resp Reports system reviewed and no additional complaints, except as docu GI Reports system reviewed and no additional complaints, except as docu, Reports nausea Reports system reviewed and no additional complaints, except as docu Musc Reports system reviewed and no additional complaints, except as docu Exam Const General: cooperative, healthy appearing, comfortable, anxious [facility] Head: normal to inspection Nose: external nose normal Face and sinus: normal facial exam Neck Neck: normal visual inspection, full ROM, no lymphadenopathy Thyroid: thyroid normal Chest Chest palpation & inspection: normal inspection of the chest Resp Effort & Inspection: normal respiratory effort GI Inspection: normal to inspection Palpation: soft, other (gravid uterus) Other: infant vertex and appropriate size for gestational age Other: Cervical Exam: Extrem General: pedal edema Office Procedures OB NST Non-Stress Test Indications for Monitoring: Yes diabetes Heart Rate Baseline: 140 Heart Rate Variability: moderate Movement: Present Heart Rate Accelerations: Present Decelerations: Absent Impression: Yes Reactive Non-Stress Test Category 1 Results POC Urinalysis 2 Dip (Clinic) Office Urine Glucose Negative Last Edit by Lesly Carlin on 01/22/20 10:50 Office Urine Protein Negative Last Edit by Lesly Carlin on 01/22/20 10:50 Assessment & Plan Problems 1. Supervision of high risk , antepartum O09.90 PRR HANNAH 01/31/20 Yessi, gender surprise 2. Diabetes mellitus affecting in second trimester O24.912 weekly lucinda, twice weekly NST through delivery. insulin. preexisting most likely, diagnosed 1 TM, sees dr sumner. nl baseline labs urine protein CR 3. Acquired hypothyroidism E03.9 synthroid, managed by dr sumner 4. Atypical squamous cells of undetermined significance (ASC-US) on cervical Pap smear R87.610 HPV negative-Repeat pap in 2022 5. Cleft lip and cleft palate, left Q37.9 nl targeted MFM anatomy US 6. Obesity affecting in third trimester O99.213 1 tm glucola abnl, encouraged healthy weight gain, recommend 81 mg aspirin daily 7. 38 weeks gestation of Z3A.38 genetic and carrier low risk, neg 14/14US with . nl AFP screen. nl anatomy and echo. Patient presents IOL, plan management for with pitocin/AROM after gordon bulb. Pain management: plans epidural GBS negative. Management of any complications: diabetes- check BS per protocol, insulin drip PRN I have reviewed the COUNTS INCLUDE 234 BEDS AT THE [facility] and made any clinically relevant updates. Orders Orders: POC Urinalysis 2 Dip (Clinic) 01/22/20 OB NST 01/22/20 O24.912, O99.213 Coding Level of Care Code OB Routine Diagnoses Supervision of high risk , antepartum O09.90 Diabetes mellitus affecting in second trimester O24.912 Acquired hypothyroidism E03.9 Hypothyroidism type: acquired Atypical squamous cells of undetermined significance (ASC-US) on cervical Pap smear R87.610 Cleft lip and cleft palate, left Q37.9 Obesity affecting in third trimester O99.213 Trimester: third trimester 38 weeks gestation of Z3A.38 Weeks of gestation: 38 weeks UPDATE- I have seen the patient and performed any clinically relevant updates to the history and physical exam. Adriana Read MD
[2020-01-25] MEDS: fentaNYL-bupivacaine (epidural) 100 ML BAG EPIDURAL ×3 (13:29→22:50)
[2020-01-25 16:20] LABS: Bedside Glucose 77 mg/dL (70-110)
[2020-01-25] MEDS: Lactated Ringers 1,000 ML 200 ML IV ×2 (17:32→22:35)
[2020-01-25 20:01] LABS: Bedside Glucose 64 mg/dL (70-110)
[2020-01-25 20:35] LABS: Bedside Glucose 76 mg/dL (70-110)
[2020-01-25] MEDS: Ondansetron 4 MG/2 ML Vial IV (20:37)
[2020-01-25 21:51] LABS: Bedside Glucose 107 mg/dL (70-110)
[2020-01-25 23:51] LABS: Bedside Glucose 104 mg/dL (70-110)
[2020-01-26] VITALS (28 sets, daily range): BP systolic 115–183; BP diastolic 61–101; PULSE 89–117; RESP 12–18; TEMP 35.8–36.9; O2SAT 96–100
[2020-01-26 01:26] LABS: Bedside Glucose 103 mg/dL (70-110)
[2020-01-26 02:30] LABS: Bedside Glucose 121 mg/dL (70-110)
[2020-01-26] MEDS: fentaNYL-bupivacaine (epidural) 100 ML BAG EPIDURAL (02:51)
[2020-01-26 03:31] LABS: Bedside Glucose 128 mg/dL (70-110)
[2020-01-26] MEDS: Dext 5%-0.45% NS 1,000 ML 125 ML IV (04:00)
[2020-01-26] MEDS: Lactated Ringers 1,000 ML 15 ML IV (04:20)
[2020-01-26 04:31] LABS: Bedside Glucose 122 mg/dL (70-110)
[2020-01-26] MEDS: Sodium Citrate/Citric Acid 30 ML UDC PO (05:20)
[2020-01-26] MEDS: Cefazolin 2 GM in 0.9% Normal Saline 100 ML IV (05:21)
--- NOTE | 2020-01-26 05:23 | PCM.PN.BLA ---
Progress Note After 34 hours of Pitocin including a Pitocin washout and maxing out Pitocin up to 26 milliunits patient has an arrest of dilation at 7 cm for 4 hours with adequate contractions. Decision was made to proceed with primary low transverse . Patient and agreeable to proceed with this course. Suspected CPD. Insulin drip has been started per protocol within the last few hours due to elevated blood sugars. Category 1 heart tracing reassuring overall. Ancef and azithromycin will be given. Discussed with the patient and her risk benefits and alternatives of and recommend repeat cesareans for all deliveries due to CPD.
[2020-01-26] MEDS: Acetaminophen 500 MG Tablet 1000 MG PO ×3 (05:24→18:23)
--- NOTE | 2020-01-26 05:25 | OP.PCM_ITS ---
Problem List (1) Encounter for induction of labor Status: Acute (2) Supervision of high risk , antepartum Status: Acute Comment: PRR HANNAH 01/31/20 [place], gender surprise (3) Diabetes mellitus affecting in second trimester Status: Acute Comment: weekly tanesha, twice weekly NST through delivery. insulin. preexisting most likely, diagnosed 1 TM, sees dr gilbert. nl baseline labs urine protein CR (4) Hypothyroid Status: Acute Qualifiers: Comment: synthroid, managed by dr gilbert (5) Atypical squamous cells of undetermined significance (ASC-US) on cervical Pap smear Status: Acute Comment: HPV negative-Repeat pap in 2022 (6) Cleft lip and cleft palate, left Status: Acute Comment: nl targeted MFM anatomy US (7) Obesity affecting Status: Acute Qualifiers: Comment: 1 tm glucola abnl, encouraged healthy weight gain, recommend 81 mg aspirin daily (8) Status: Acute Qualifiers: Comment: genetic and carrier low risk, neg 14/14US with . nl AFP screen. nl anatomy and echo. Report of Operation Date of Procedure: 01/26/20 Delivery Classification: ANGEL LUIS Final HANNAH: 01/31/20 Gestational age: 39 Weeks and 2 Days bumper operator: Arianna Clay Type of Anesthesia:: Epidural/Supplement Special Medications: none Implants Used: none Date of Procedure: 01/26/20 Pre-Operative Diagnosis: arrest of dilation 7 cm, CPD, class B diabetes insulin controlled, obesity Post-Operative Diagnosis: same Description of Procedure: 29-year-old G1, P0 presented at 39 weeks for induction of labor secondary to class B diabetes controlled with insulin. She started with a cervix of 1 cm thick and high. She underwent Pitocin and Pack bulb induction and had spontaneous rupture of membranes for clear fluid. Patient underwent Pitocin washout and was maxed out to 26 milliunits of Pitocin at 1 time. She started making cervical change after 22 hours of Pitocin but after an additional 12 hours she had only made 2 cm a change and was stalled out for the last force the decision was made to proceed with a primary low transverse for suspected CPD. the patient was placed in the dorsal supine position with leftward tilt. Patient was prepped and draped in the normal sterile fashion. Pfannenstiel skin incision was made with the scalpel and carried through to the underlying layer of fascia with the scalpel. Fascia was nicked in the midline and the incision extended laterally. The rectus bellies were dissected off superiorly and inferiorly with out complication both sharply and bluntly. The peritoneum was entered digitally. The incision was stretched and a low transverse uterine incision was made with the scalpel. The 's head was delivered atraumatically followed by the anterior and posterior shoulders without complication the rest of the delivered. The cord was clamped and cut and the was handed off to awaiting nurse. The placenta was delivered spontaneously immediately following and was noted to be intact and have a three- vessel cord. The uterus was exteriorized cleared of all clots and debris, and t he incision was closed in a double layer closure using #1 Monocryl. The ovaries and fallopian tubes were noted to be within normal limits. The uterus was returned to the maternal abdomen and gutters were cleared of all clots and debris. The peritoneum was closed with 3-0 Monocryl in a running fashion. Gloves were changed prior to fascial closure. Fascia was closed with 0 PDS in a running fashion. Subcutaneous tissue was copiously irrigated and the skin was closed with 3-0 Monocryl in a subcuticular fashion. Mepilex dressing was applied without complication. Patient was taken to recovery in stable condition. It was discussed with the patient that based on the clinical information obtained during this encounter, combined with her history, at this time I would recommend cesareans for future deliveries if further pregnancies are desired. Amniotic Membrane Rupture Type: Spontaneous Amniotic Fluid Description: Clear Placenta Disposition: [facility] Drain: Pack to straight drain Fluids Replaced: crystalloid Cord Entanglement: None Cord Vessel Description: 3 Vessels Esitmated Blood Loss (ml): 800 Infant Gender: Male Delayed cord clamping: Yes Antibiotic Given: Ancef 2 grams IV x1, Zithromax 500 mg/5 mL X1 Pt instructed on risks of surgery: Bleeding, Anesthesia Risks, Infection, Need for Future C-Sections, Injury to surrounding structure(s) including bowel and bladder Complications: None - methergine given for atony but no hemorrhage - Admit VTE Documentation VTE Present on Admission: No Multi Select Codes - Urinary/Genital Urinary/Genital CPT Codes: 26429 Delivery [facility]
[2020-01-26 05:40] LABS: Bedside Glucose 138 mg/dL (70-110)
[2020-01-26] MEDS: Methylergonovine 0.2 MG/ML Ampul IM (06:01)
[2020-01-26] MEDS: Oxytocin 30 units/NS 500 ml 30 UNITS/500 ML IV.SOLN 167 UNITS IV (06:55)
[2020-01-26] MEDS: Insulin Lispro 100 UNIT/ML INSULN.PEN SC ×2 (07:18→14:51)
[2020-01-26 07:25] LABS: Bedside Glucose 184 mg/dL (70-110)
[2020-01-26] MEDS: Senna/Docusate Sodium 1 Tablet PO (10:00)
[2020-01-26] MEDS: Lactated Ringers 1,000 ML 100 ML IV (10:00)
[2020-01-26] MEDS: Loratadine 10 MG Tablet PO (10:03)
[2020-01-26] MEDS: Levothyroxine 112 MCG Tablet PO (12:14)
[2020-01-26] MEDS: Ketorolac 30 MG/ML Syringe IV ×2 (12:15→18:24)
[2020-01-26] MEDS: Prenatal Vits Tablet 1 TABLET PO (12:15)
[2020-01-26] MEDS: 0.9% Saline Lock 10 ML Syringe IV ×3 (13:23→18:43)
[2020-01-26 14:21] LABS: Bedside Glucose 159 mg/dL (70-110)
[2020-01-26] MEDS: Enoxaparin 40 MG/0.4 ML Syringe SC (18:25)
[2020-01-26 19:11] LABS: Bedside Glucose 130 mg/dL (70-110)
[2020-01-26 22:26] LABS: Bedside Glucose 145 mg/dL (70-110)
[2020-01-27] VITALS (7 sets, daily range): BP systolic 107–124; BP diastolic 50–79; PULSE 81–104; RESP 16–18; TEMP 36.3–37.1; O2SAT 97–100
[2020-01-27] MEDS: Naproxen 250 MG Tablet 500 MG PO ×3 (00:16→16:26)
[2020-01-27] MEDS: Acetaminophen 500 MG Tablet 1000 MG PO ×4 (00:16→18:28)
[2020-01-27 04:51] LABS: Hematocrit 32.7 % (37-47); Hemoglobin 10.6 g/dL (12.0-15.0); Mean Corp Hgb Conc 32.4 g/dL (32-36); Mean Corpuscular Hgb 27.9 pg (27.0-32.0); Mean Corpuscular Volume 86.1 fL (81-99); Mean Platelet Vol. 10.4 fl (6.2-12.0); Platelet Count 293 K/mm3 (150-450); RBC Distribution Width CV 14.9 % (11.6-14.6); RBC Distribution Width SD 46.6 fl (35.1-43.9); White Blood Count 17.3 K/mm3 (4.4-11.0)
[2020-01-27] MEDS: Levothyroxine 112 MCG Tablet PO (06:17)
[2020-01-27 07:50] LABS: Bedside Glucose 88 mg/dL (70-110)
--- NOTE | 2020-01-27 08:07 | PN.OBGYN_ITS ---
Patient Problems: Active and Suspected Problems (Last Reviewed 01/22/20 @ 10:38 by Lesly Carlin) Encounter for induction of labor (Acute) Subjective: Doing well, no complaints.Pain controlled. Denies CP, SOB, N,V. Ambulating well, tolerating po. Lochia moderate, going well. - Physical Exam Vitals/I&O's: Vital Signs Temp Pulse Resp BP Pulse Ox 97.5 F L 98 18 124/61 H 99 01/27/20 04:30 01/27/20 05:33 01/27/20 05:33 01/27/20 04:30 01/27/20 05:33 Oxygen Delivery Method Room Air Weight: 218 lb Body Mass Index (BMI) 39.9 Intake and Output for Last 24 Hours 01/25/20 01/26/20 01/27/20 23:59 23:59 23:59 Intake Total 4055.79 / 4055.79 3268.76 / 3268.76 Output Total 1350 / 1350 2100 / 2100 Balance 2705.79 / 2705.79 1168.76 / 1168.76 General: Alert, Oriented x3 Abdomen: Soft - FF below U. Dressing dry and intact, Non-Distended Laboratory Results 01/26/20 14:08: POC Glucose 159 H 01/26/20 18:21: POC Glucose 130 H 01/26/20 22:01: POC Glucose 145 H 01/27/20 04:30: WBC 17.3 H, RBC 3.80 L, Hgb 10.6 L, Hct 32.7 L, MCV 86.1, MCH 27.9, MCHC 32.4, RDW Std Deviation 46.6 H, RDW Coeff of Jennifer 14.9 H, Plt Count 293, MPV 10.4 01/27/20 07:44: POC Glucose 88 Current Medications Acetaminophen (Tylenol) 1,000 mg PO Q6H [facility] Last Admin: 01/27/20 06:17 Dose: 1,000 mg Documented by: Bisacodyl (Dulcolax) 10 mg RECTAL UD PRN PRN Reason: If no BM Dextrose (D50w Syringe) 0 gm IV X1 PRN; Protocol PRN Reason: Hypoglycemia Enoxaparin Sodium (Lovenox) 40 mg SC DAILY@1800 [facility] Last Admin: 01/26/20 18:25 Dose: 40 mg Documented by: Glucagon () 1 mg IM .X1 PRN PRN Reason: Hypoglycemia Hydrocortisone (Hytone) 1 applic TOPICAL TID PRN PRN; Protocol PRN Reason: Discomfort Naloxone HCl 4 mg/ Dextrose 504 mls @ 0 mls/hr IV .Q0M PRN; Protocol PRN Reason: Respiratory depression Naloxone HCl 4 mg/ Dextrose 504 mls @ 0 mls/hr IV .Q0M PRN; Protocol PRN Reason: To maintain Resp. rate >10 Insulin Human Lispro (Humalog Kwikpen (Bkc)) 0 unit SC ACHS [facility]; Protocol Last Admin: 01/27/20 07:53 Dose: Not Given Documented by: Levothyroxine Sodium (Synthroid) 112 mcg PO DAILY@0600 [facility] Last Admin: 01/27/20 06:17 Dose: 112 mcg Documented by: Loratadine (Claritin) 10 mg PO DAILY [facility] Last Admin: 01/26/20 10:03 Dose: 10 mg Documented by: Methylergonovine Maleate (Methergine) 0.2 mg IM X1 PRN PRN Reason: Uterine Atony Last Admin: 01/26/20 06:01 Dose: 0.2 mg Documented by: Naloxone HCl (Narcan) 0.02 mg IV Q1M PRN PRN Reason: RR <10 and pt unresponsive Naloxone HCl (Narcan) 0.02 mg IV Q1M PRN PRN Reason: RR< 10 AND PT UNRESPONSIVE Naproxen (Naprosyn) 500 mg PO Q8H [facility] Last Admin: 01/27/20 00:16 Dose: 500 mg Documented by: Ondansetron HCl (Zofran) 4 mg IV Q4H PRN PRN PRN Reason: Nausea Oxycodone HCl (Oxyir) 5 - 10 mg PO Q4H PRN PRN PRN Reason: Pain Score 4-10/10 Multivit/Folic Acid/Iron (Prenatabs Fa) 1 tablet PO DAILY@1200 [facility] Last Admin: 01/26/20 12:15 Dose: 1 tablet Documented by: Prochlorperazine Edisylate (Compazine Iv) 10 mg IV Q6H PRN PRN PRN Reason: NAUSEA Senna/Docusate Sodium (Senokot-S, Cathryn-Colace) 0 tablet PO DAILY [facility] Last Admin: 01/26/20 10:00 Dose: 2 tablet Documented by: Simethicone (Mylicon) 80 mg PO PCHS PRN PRN Reason: Indigestion/stomach pain Sodium Chloride () 5 - 15 ml IV UD PRN PRN Reason: SALINE FLUSH Last Admin: 01/26/20 18:43 Dose: 10 ml Documented by: Medical Necessity - Tobacco Use Smoking Status: Never smoker Assessment/Plan All Active Problems (Last Reviewed 01/22/20 @ 10:38 by Lesly Carlin) Encounter for induction of labor (Acute) Supervision of high risk , antepartum (Acute) Diabetes mellitus affecting in second trimester (Acute) Hypothyroid (Acute) Atypical squamous cells of undetermined significance (ASC-US) on cervical Pap smear (Acute) Cleft lip and cleft palate, left (Acute) Obesity affecting (Acute) (Acute) s/p LTCS PPD # 1 1. routine post care 2. breast feeding- support given 3. rh positive 4. rubella immune 5. glucose reading within protocol parameters.
[2020-01-27] MEDS: Loratadine 10 MG Tablet PO (08:39)
[2020-01-27] MEDS: Senna/Docusate Sodium 1 Tablet PO (08:41)
[2020-01-27 16:26] LABS: Bedside Glucose 114 mg/dL (70-110)
[2020-01-27 16:45] LABS: Bedside Glucose 138 mg/dL (70-110)
[2020-01-27] MEDS: Enoxaparin 40 MG/0.4 ML Syringe SC (18:29)
[2020-01-27 21:41] LABS: Bedside Glucose 123 mg/dL (70-110)
[2020-01-28] MEDS: Acetaminophen 500 MG Tablet 1000 MG PO ×3 (00:24→13:31)
[2020-01-28] MEDS: Naproxen 250 MG Tablet 500 MG PO ×2 (00:25→07:49)
[2020-01-28 02:01] VITALS: BP 131/84; PULSE 88; RESP 18; TEMP 36.4
[2020-01-28] MEDS: Levothyroxine 112 MCG Tablet PO (06:32)
[2020-01-28 07:41] LABS: Bedside Glucose 91 mg/dL (70-110)
[2020-01-28] MEDS: Loratadine 10 MG Tablet PO (07:49)
[2020-01-28] MEDS: Senna/Docusate Sodium 1 Tablet PO (07:50)
[2020-01-28 07:53] VITALS: BP 126/70; PULSE 81; RESP 16; TEMP 37.2; O2SAT 100
--- NOTE | 2020-01-28 07:55 | PN.OBGYN_ITS ---
Patient Problems: Active and Suspected Problems (Last Reviewed 01/22/20 @ 10:38 by Lesly Carlin) Encounter for induction of labor (Acute) Subjective: Doing well, no complaints.Pain controlled. Denies CP, SOB, N,V. Ambulating well, tolerating po. Lochia moderate, going well. - Physical Exam Vitals/I&O's: Vital Signs Temp Pulse Resp BP Pulse Ox 97.6 F L 88 18 131/84 H 100 01/28/20 02:01 01/28/20 02:01 01/28/20 02:01 01/28/20 02:01 01/27/20 20:02 Oxygen Delivery Method Room Air Weight: 218 lb Body Mass Index (BMI) 39.9 Intake and Output for Last 24 Hours 01/26/20 01/27/20 01/28/20 23:59 23:59 23:59 Intake Total 3268.76 / 3268.76 Output Total 2100 / 2100 Balance 1168.76 / 1168.76 General: Alert, Oriented x3 Abdomen: Soft, Non-Distended, - - FF below U. Dressing dry and intact Laboratory Results 01/27/20 11:06: POC Glucose 114 H 01/27/20 16:29: POC Glucose 138 H 01/27/20 21:33: POC Glucose 123 H 01/28/20 07:33: POC Glucose 91 Current Medications Acetaminophen (Tylenol) 1,000 mg PO Q6H [facility] Last Admin: 01/28/20 06:32 Dose: 1,000 mg Documented by: Bisacodyl (Dulcolax) 10 mg RECTAL UD PRN PRN Reason: If no BM Dextrose (D50w Syringe) 0 gm IV X1 PRN; Protocol PRN Reason: Hypoglycemia Enoxaparin Sodium (Lovenox) 40 mg SC DAILY@1800 [facility] Last Admin: 01/27/20 18:29 Dose: 40 mg Documented by: Glucagon () 1 mg IM .X1 PRN PRN Reason: Hypoglycemia Hydrocortisone (Hytone) 1 applic TOPICAL TID PRN PRN; Protocol PRN Reason: Discomfort Naloxone HCl 4 mg/ Dextrose 504 mls @ 0 mls/hr IV .Q0M PRN; Protocol PRN Reason: Respiratory depression Naloxone HCl 4 mg/ Dextrose 504 mls @ 0 mls/hr IV .Q0M PRN; Protocol PRN Reason: To maintain Resp. rate >10 Insulin Human Lispro (Humalog Kwikpen (Bkc)) 0 unit SC ACHS [facility]; Protocol Last Admin: 01/28/20 07:39 Dose: Not Given Documented by: Levothyroxine Sodium (Synthroid) 112 mcg PO DAILY@0600 [facility] Last Admin: 01/28/20 06:32 Dose: 112 mcg Documented by: Loratadine (Claritin) 10 mg PO DAILY [facility] Last Admin: 01/28/20 07:49 Dose: 10 mg Documented by: Methylergonovine Maleate (Methergine) 0.2 mg IM X1 PRN PRN Reason: Uterine Atony Last Admin: 01/26/20 06:01 Dose: 0.2 mg Documented by: Naloxone HCl (Narcan) 0.02 mg IV Q1M PRN PRN Reason: RR <10 and pt unresponsive Naloxone HCl (Narcan) 0.02 mg IV Q1M PRN PRN Reason: RR< 10 AND PT UNRESPONSIVE Naproxen (Naprosyn) 500 mg PO Q8H [facility] Last Admin: 01/28/20 07:49 Dose: 500 mg Documented by: Ondansetron HCl (Zofran) 4 mg IV Q4H PRN PRN PRN Reason: Nausea Oxycodone HCl (Oxyir) 5 - 10 mg PO Q4H PRN PRN PRN Reason: Pain Score 4-10/10 Multivit/Folic Acid/Iron (Prenatabs Fa) 1 tablet PO DAILY@1200 [facility] Last Admin: 01/27/20 12:16 Dose: Not Given Documented by: Prochlorperazine Edisylate (Compazine Iv) 10 mg IV Q6H PRN PRN PRN Reason: NAUSEA Senna/Docusate Sodium (Senokot-S, Cathryn-Colace) 0 tablet PO DAILY [facility] Last Admin: 01/28/20 07:50 Dose: 2 tablet Documented by: Simethicone (Mylicon) 80 mg PO HS PRN PRN Reason: Indigestion/stomach pain Last Admin: 01/27/20 20:19 Dose: 80 mg Documented by: Sodium Chloride () 5 - 15 ml IV UD PRN PRN Reason: SALINE FLUSH Last Admin: 01/26/20 18:43 Dose: 10 ml Documented by: Medical Necessity - Tobacco Use Smoking Status: Never smoker Assessment/Plan All Active Problems (Last Reviewed 01/22/20 @ 10:38 by Lesly Carlin) Encounter for induction of labor (Acute) Supervision of high risk , antepartum (Acute) Diabetes mellitus affecting in second trimester (Acute) Hypothyroid (Acute) Atypical squamous cells of undetermined significance (ASC-US) on cervical Pap smear (Acute) Cleft lip and cleft palate, left (Acute) Obesity affecting (Acute) (Acute) s/p LTCS PPD # 2 1. routine post care 2. breast feeding- support given 3. rh positive 4. rubella immune 5. glucose controlled, aware to contact Dr. Sumner for further management 6. home today
--- NOTE | 2020-01-28 08:00 | DCINST_ITS ---
Additional Instructions: If you experience any of the following, contact your healthcare provider. * Bleeding that soaks a pad every hour for 2 hours * Fever 100.4 or higher * Unrelieved incision or abdominal pain * Swelling, redness, discharge or bleeding from your incision or episiotomy site * Your incision begins to separate * Problems urinating (including inability to urinate or burning while urinating). * Visual changes * Severe headache * Flu-like symptoms * Pain or redness in one of both of your breasts * Pain, warmth, tenderness or swelling in your legs, especially the calf area * Frequent nausea and vomiting * Symptoms of depression or anxiety If you experience any of the following, call 911 or go to the nearest Emergency Room. * Chest pain * Problems breathing * Seizure activity * Partial or complete paralysis of a body part, slurred speech, weakness or drooping of the face, or a sudden inability to walk or hold your balance Allergies/Adverse Reactions: Allergies Penicillins Allergy (Mild, Verified 01/22/20 10:38) Other Medications to take at Discharge cetirizine 10 mg capsule 10 mg PO DAILY 09/15/18 vitamin#30 30 mg iron-10 mg iron-folic acid 1 mg-omg3 capsule 1 cap PO DAILY cap 09/15/18 aspirin 81 mg chewable tablet 81 mg PO DAILY 09/04/19 diphenhydramine HCl 25 mg tablet 25 mg PO DAILY 12/01/19 insulin NPH isoph U-100 human 100 unit/mL (3 mL) subcutaneous pen 50 unit SC BID ml 01/22/20 insulin aspart U-100 100 unit/mL (3 mL) subcutaneous pen 10 unit SC .at dinner ml 01/22/20 Blood Sugar Diagnostic [Blood Glucose Test] See Rx Instructions .ROUTE .MEDSUPPLY 01/24/20 Blood-Glucose Meter [Contour Next One] See Rx Instructions .ROUTE .MEDSUPPLY 01/24/20 Pen Needle, Diabetic [Comfort EZ Pen [place]] See Rx Instructions .ROUTE .MEDSUPPLY 01/24/20 levothyroxine 112 mcg tablet 112 mcg PO DAILY #90 tab 01/26/20 Naproxen [Naprosyn] 500 mg PO BID PRN PRN #60 tab 01/28/20 Oxycodone HCl/Acetaminophen [Percocet 5/325] 1 - 2 tablet PO Q4H PRN PRN 3 Days #15 tablet 01/28/20 The following prescriptions were given: Naproxen [Naprosyn] 500 mg PO BID PRN PRN #60 tab PRN Reason: Pain Transmission Status: Pending to [facility] Oxycodone HCl/Acetaminophen [Percocet 5/325] 1 - 2 tablet PO Q4H PRN PRN 3 Days #15 tablet PRN Reason: Pain Transmission Status: Sent to [facility] Follow-Up: Call to make an appointment with your doctor for an incision check in 1-2 weeks. You will also need a 6 week post- follow up appointment. Test results from this visit will be discussed in further detail at your follow- up appointment, if applicable. Primary Care Physician: Care Physician,No Primary [Primary Care Provider] -
[2020-01-28 11:35] LABS: Bedside Glucose 128 mg/dL (70-110)
[2020-01-28 13:27] VITALS: BP 130/76; PULSE 76; RESP 16; TEMP 36.4; O2SAT 99
[2020-01-28] MEDS: Prenatal Vits Tablet 1 TABLET PO (13:31)
--- NOTE | 2020-01-30 06:12 | NURSING ---
Late entry add to OB delivery record, personal at delivery. Dr. Adriana Clay, PERMIT COORDINATOR Mason Alcaraz, CONSUMER LOAN PROCESSOR KIERA Miguel, RT Gem Hardy, Tech KIERA Hsu, Charge Shelley Summers RN
--- NOTE | 2020-02-01 11:28 | PCM.DC.SUM ---
Discharge Date and Diagnosis Date of Admission: 01/24/20 Hospital Course and Treatment Consultations 01/24/20 19:26 Consult: Anesthesia Routine Comment: Reason For Exam: Labor Procedures: - - ltcs Summary of Care Provided: The patient is a 29 year old F ltcs cpd. GDM, glucose stable after delivery. Routine care. Discharge stable day 3 without restrictions - Physical Exam Vitals/I&O's: Vital Signs Temp Pulse Resp BP Pulse Ox 97.6 F L 76 16 130/76 H 99 01/28/20 13:27 01/28/20 13:27 01/28/20 13:27 01/28/20 13:27 01/28/20 13:27 Oxygen Delivery Method Room Air Weight: 218 lb Body Mass Index (BMI) 39.9 Home Medications: Medications to take at Discharge cetirizine 10 mg capsule 10 mg PO DAILY 09/15/18 vitamin#30 30 mg iron-10 mg iron-folic acid 1 mg-omg3 capsule 1 cap PO DAILY cap 09/15/18 aspirin 81 mg chewable tablet 81 mg PO DAILY 09/04/19 diphenhydramine HCl 25 mg tablet 25 mg PO DAILY 12/01/19 insulin NPH isoph U-100 human 100 unit/mL (3 mL) subcutaneous pen 50 unit SC BID ml 01/22/20 insulin aspart U-100 100 unit/mL (3 mL) subcutaneous pen 10 unit SC .at dinner ml 01/22/20 Blood Sugar Diagnostic [Blood Glucose Test] See Rx Instructions .ROUTE .MEDSUPPLY 01/24/20 Blood-Glucose Meter [Contour Next One] See Rx Instructions .ROUTE .MEDSUPPLY 01/24/20 Pen Needle, Diabetic [Comfort EZ Pen [place]] See Rx Instructions .ROUTE .MEDSUPPLY 01/24/20 levothyroxine 112 mcg tablet 112 mcg PO DAILY #90 tab 01/26/20 Naproxen [Naprosyn] 500 mg PO BID PRN PRN #60 tab 01/28/20 Following Prescrptions Were Given to Patient: Naproxen [Naprosyn] 500 mg PO BID PRN PRN #60 tab PRN Reason: Pain Transmission Status: Received by [facility] Primary Care Physician: Care Physician,No Primary [Primary Care Provider] - Medical Necessity - Tobacco Use Smoking Status: Never smoker Meaningful Use Info Meaningful Use Diagnoses (Choose all that apply): None applicable
== END 2020-01-28 13:50 | disposition home or self-care (01) | DRG 788 ==
PROVIDERS: Admitting Provider Obstetrics & Gynecology; Visit Provider Obstetrics & Gynecology
DX: O24.32 Unspecified pre-existing diabetes mellitus in childbirth (principal); O62.0 Primary inadequate contractions; O65.9 Obstructed labor due to maternal pelvic abnormality, unspecified; O99.284 Endocrine, nutritional and metabolic diseases complicating childbirth; E03.9 Hypothyroidism, unspecified; O99.214 Obesity complicating childbirth; E66.9 Obesity, unspecified; Z79.82 Long term (current) use of aspirin; Z79.4 Long term (current) use of insulin; Z79.899 Other long term (current) drug therapy; Z3A.39 39 weeks gestation of pregnancy; Z37.0 Single live birth
CPT/HCPCS: 59025; 59050; 82962; 85025; 85027; 86850; 86900; 86901; 87635; 99218; 99251; G2023; J7120; A4216; G0378; G0463; J2405; J7799; U0003

== ENCOUNTER → 2020-08-12 10:34 | Outpatient (CLI) | payer OTHER, SELFPAY ==
[2020-08-12 10:07] VITALS: BMI 36.6
[2020-08-12 13:05] LABS: ALB/GLOB Ratio 0.9 RATIO (0.9-2.4); AST(SGOT) 16 U/L (15-37); Alanine Aminotransfer ALT/SGPT 37 U/L (13-56); Albumin, Serum 3.6 g/dL (3.2-5.0); Alkaline Phosphatase 92 U/L (45-117); Anion Gap 8 (5-15); BUN 14 mg/dL (7-18); Calcium,Total 8.8 mg/dL (8.5-10.1); Chloride 105 mmol/L (98-107); Cholesterol 220 mg/dL (200); EST Glomerular Filtration Rate 103 mL/min (>60); Est Glom Filt Rate - Afr Amer 124 mL/min (>60); Globulin 3.9 g/dL (2.2-4.2); Glucose 111 mg/dL (74-106); High Density Lipoprotein 53 mg/dL; Potassium 4.1 mmol/L (3.5-5.1); Protein, Total 7.5 g/dL (6.4-8.2); Sodium Level 136 mmol/L (136-145); T4 Free Direct 1.18 ng/dL (0.76-1.46); Thyroid Stim Hormone (TSH) 4.28 uIU/mL (0.358-3.74); Triglycerides 90 mg/dL; Very Low Density Lipoprotein 18 mg/dL (5-40)
== END ==
PROVIDERS: Referring Provider Internal Medicine Endocrinology, Diabetes & Metabolism; Visit Provider Internal Medicine Endocrinology, Diabetes & Metabolism
DX: E03.8 Other specified hypothyroidism (principal); E06.3 Autoimmune thyroiditis; E28.2 Polycystic ovarian syndrome
CPT/HCPCS: 36415; 80053; 80061; 84439; 84443

== ENCOUNTER 2021-10-16 09:23 | Outpatient (CLI) | payer OTHER, SELFPAY ==
[2021-10-16 12:40] LABS: Hemoglobin A1c 7.3 % (3.8-5.6)
[2021-10-16 12:45] LABS: ALB/GLOB Ratio 0.9 RATIO (0.9-2.4); AST(SGOT) 10 U/L (15-37); Alanine Aminotransfer ALT/SGPT 26 U/L (13-56); Albumin, Serum 3.6 g/dL (3.2-5.0); Alkaline Phosphatase 90 U/L (45-117); Anion Gap 4 (5-15); BUN 10 mg/dL (7-18); BUN/Creat Ratio 14.2 RATIO (10-20); Calcium,Total 8.6 mg/dL (8.5-10.1); Chloride 103 mmol/L (98-107); Cholesterol 232 mg/dL (200); EST Glomerular Filtration Rate 102 mL/min (>60); Est Glom Filt Rate - Afr Amer 123 mL/min (>60); Globulin 3.9 g/dL (2.2-4.2); Glucose 160 mg/dL (74-106); High Density Lipoprotein 39 mg/dL; Potassium 4.1 mmol/L (3.5-5.1); Protein, Total 7.5 g/dL (6.4-8.2); Sodium Level 135 mmol/L (136-145); Thyroid Stim Hormone (TSH) 1.48 uIU/mL (0.358-3.74); Triglycerides 213 mg/dL; Very Low Density Lipoprotein 43 mg/dL (5-40)
== END 2021-10-16 23:59 | disposition home or self-care (01) ==
LOC: BIMLAB 09:24
PROVIDERS: Visit Provider Nurse Practitioner Family
DX: E28.2 Polycystic ovarian syndrome (principal); E03.8 Other specified hypothyroidism; E06.3 Autoimmune thyroiditis
CPT/HCPCS: 36415; 80053; 80061; 83036; 84439; 84443

== ENCOUNTER → 2022-05-07 | Outpatient (CLI) | payer OTHER, SELFPAY ==
[2022-05-13 18:43] LABS: HPV APTIMA, High Risk Negative (Negative)
== END | disposition home or self-care (01) ==
LOC: LABSPEC 17:05
PROVIDERS: Visit Provider Registered Nurse
DX: Z12.4 Encounter for screening for malignant neoplasm of cervix (principal)
CPT/HCPCS: 87624; 88175; G0145

== ENCOUNTER → 2022-08-30 | Outpatient (CLI) | payer OTHER, SELFPAY ==
[2022-08-30 12:30] LABS: Vitamin D,25 Hydroxy 11.2 ng/mL
[2022-08-30 12:40] LABS: Absolute Lymphocyte Count 2.94 X10^3/uL (0.83-4.51); Absolute Neutrophil Count 4.3 X10^3/uL (2.0-7.7); Basophil# 0.06 X10^3/uL; Basophil% 0.8 % (0-1); Eosinophil# 0.19 X10^3/uL; Eosinophils% 2.4 % (0-5); Hematocrit 40.3 % (37-47); Hemoglobin 12.6 g/dL (12.0-15.0); Lymphocyte # 2.94 X10^3/ul (0.83-4.51); Mean Corp Hgb Conc 31.3 g/dL (32-36); Mean Corpuscular Hgb 25.4 pg (27.0-32.0); Mean Corpuscular Volume 81.3 fL (81-99); Mean Platelet Vol. 9.6 fl (6.2-12.0); Monocyte# 0.41 X10^3/uL; Monocyte% 5.2 % (0-10); NRBC Flagged by Analyzer 0 % (0-5); Neutrophil # 4.31 X10^3/uL (2.7-7.7); Neutrophil % 54.2 % (47-70); Platelet Count 359 K/mm3 (150-450); RBC Distribution Width CV 14.1 % (11.6-14.6); RBC Distribution Width SD 40.9 fl (35.1-43.9); Red Blood Count 4.96 M/mm3 (4.2-5.4); White Blood Count 7.9 K/mm3 (4.4-11.0)
[2022-08-30 12:41] LABS: AST(SGOT) 7 U/L (15-37); Alanine Aminotransfer ALT/SGPT 17 U/L (13-56); Albumin, Serum 3.8 g/dL (3.2-5.0); Alkaline Phosphatase 71 U/L (45-117); Anion Gap 5 (5-15); BUN 10 mg/dL (7-18); BUN/Creat Ratio 13.7 RATIO (10-20); Calcium,Total 9.5 mg/dL (8.5-10.1); Chloride 107 mmol/L (98-107); Cholesterol 131 mg/dL (200); Creatinine, Serum 0.73 mg/dL (0.55-1.02); EST Glomerular Filtration Rate 97 mL/min (>60); Est Glom Filt Rate - Afr Amer 117 mL/min (>60); Globulin 3.8 g/dL (2.2-4.2); Glucose 111 mg/dL (74-106); High Density Lipoprotein 41 mg/dL; Potassium 4.2 mmol/L (3.5-5.1); Protein, Total 7.6 g/dL (6.4-8.2); Sodium Level 139 mmol/L (136-145); T4 Free Direct 1.18 ng/dL (0.76-1.46); Thyroid Stim Hormone (TSH) 1.81 uIU/mL (0.358-3.74); Triglycerides 108 mg/dL; Very Low Density Lipoprotein 22 mg/dL (5-40)
== END | disposition home or self-care (01) ==
LOC: LAB 11:28
PROVIDERS: Visit Provider Nurse Practitioner Family
DX: E11.9 Type 2 diabetes mellitus without complications (principal); E78.5 Hyperlipidemia, unspecified; E06.3 Autoimmune thyroiditis; E03.8 Other specified hypothyroidism
CPT/HCPCS: 36415; 80053; 80061; 82306; 84439; 84443; 85025

== ENCOUNTER → 2023-08-26 | Outpatient (CLI) | payer OTHER, SELFPAY ==
--- OUTSIDE RECORDS SUMMARY | 2023-08-26 11:27 | XMS RPT_ITS | CCD ---
Author Name Unknown Address [address] [place] [address] Organization [facility] Care Team Providers Care Level Glass Vial Filler Name Role Phone Kelechi Madden Admitting Unavailable Kelechi Madden Attending Unavailable No Doctor Assigned, Nodr Primary Care Unavail able Allergies Allergy Classification Reported Allergen(s) Allergy Type Date of Onset Reaction(s) Facility (1 source) Penicillins; Translations: [penicillins] Propensity to adverse reactions to drug (disorder) [facility] Repository Encounters Encounter Date Encounter Type Care Provider Facility Start: 09-24-2018 End: 09-24-2018 Patient encounter procedure Kelechi Madden Facility:[facility] Payers Date Payer Category Payer Unknown 1990 Unknown [id number] Summary Purpose Family History No Family History Records Found Advance Directives No Advanced Directives Records Found Additional Source Comments INFORMATION SOURCE (unrecogn ized section and content) FOR RECORDS PERTAINING TO PATIENTS WHO ARE OR HAVE BEEN ENROLLED IN A CHEMICAL DEPENDENCY/SUBSTANCEABUSE PROGRAM, SOME INFORMATION MAY BE OMITTED. This clinical summary was aggregated from multiple sources. Caution should be exercised in using it in the provision of clinical care. This summary normalizes information from multiple sources, and as a consequence, information in this document may materially change the coding, format and clinical context of patient data. In addition, data may be omitted in some cases. CLINICAL DECISIONS SHOULD BE BASED ON THE PRIMARY CLINICAL RECORDS. [employer] provides no warranty or guarantee of the accuracy or completeness of information in this document.
[2023-08-26 12:14] LABS: ALB/GLOB Ratio 0.9 RATIO (0.9-2.4); AST(SGOT) 15 U/L (15-37); Alanine Aminotransfer ALT/SGPT 36 U/L (13-56); Albumin, Serum 3.3 g/dL (3.2-5.0); Alkaline Phosphatase 65 U/L (45-117); Anion Gap 3 (5-15); BUN 4 mg/dL (7-18); BUN/Creat Ratio 5.3 RATIO (10-20); Calcium,Total 9.1 mg/dL (8.5-10.1); Chloride 110 mmol/L (98-107); Cholesterol 180 mg/dL (200); Creatinine, Serum 0.75 mg/dL (0.55-1.02); EST Glomerular Filtration Rate 93 mL/min (>60); Est Glom Filt Rate - Afr Amer 113 mL/min (>60); Globulin 3.5 g/dL (2.2-4.2); Glucose 96 mg/dL (74-106); High Density Lipoprotein 38 mg/dL; Microalbumin,Random Urine 14.8 mg/L (NO RANGE EST.); Potassium 3.8 mmol/L (3.5-5.1); Protein, Total 6.8 g/dL (6.4-8.2); Sodium Level 140 mmol/L (136-145); T4 Free Direct 1.21 ng/dL (0.76-1.46); Thyroid Stim Hormone (TSH) 0.66 uIU/mL (0.358-3.74); Triglycerides 112 mg/dL; Very Low Density Lipoprotein 22 mg/dL (5-40)
== END | disposition home or self-care (01) ==
LOC: LAB 11:06
PROVIDERS: Referring Provider Nurse Practitioner Family; Visit Provider Nurse Practitioner Family
DX: E03.8 Other specified hypothyroidism (principal); E11.9 Type 2 diabetes mellitus without complications; E06.3 Autoimmune thyroiditis; E78.5 Hyperlipidemia, unspecified; E55.9 Vitamin D deficiency, unspecified
CPT/HCPCS: 36415; 80053; 80061; 82043; 82306; 82570; 84439; 84443

== ENCOUNTER → 2024-04-20 | Outpatient (CLI) | payer OTHER, SELFPAY ==
--- NOTE | 2024-04-20 14:04 | US_ITS ---
INDICATION: enlarged thyroid EXAMINATION: Ultrasound US Thyroid (eg thyroid, parathyroid, parotid) TECHNIQUE: Chua scale and color doppler imaging was performed of the thyroid gland. COMPARISON: No relevant prior comparison study available FINDINGS: RIGHT THYROID LOBE: 1.5 x 3.9 x 1.3 cm. The right lobe heterogenous. [No thyroid nodules are present. LEFT THYROID LOBE: 1.3 x 3.9 x 1.1 cm. The left lobe is heterogenous.. [No thyroid nodules are present. ISTHMUS: 0.3 cm. No thyroid nodules are present. US/Thyroid IMPRESSION: Heterogenous thyroid gland with no discrete nodules identified. Electronically Signed: Karuna Johnson MD at 10:22 EDT ,
[2024-04-20 15:19] LABS: T4 Free Direct 1.03 ng/dL (0.76-1.46)
== END | disposition home or self-care (01) ==
PROVIDERS: Referring Provider Nurse Practitioner Family; Visit Provider Nurse Practitioner Family
DX: E04.9 Nontoxic goiter, unspecified (principal); E03.8 Other specified hypothyroidism; E06.3 Autoimmune thyroiditis
CPT/HCPCS: 36415; 76536; 84439; 84443

== ENCOUNTER → 2025-01-19 | Outpatient (CLI) | payer OTHER, SELFPAY ==
[2025-01-19 17:47] LABS: Creatinine, Urine (random) 316.00 mg/dL (28.00-217.00); Microalbumin,Random Urine < 12.0 mg/L (<20 mg/L)
[2025-01-19 17:54] LABS: AST(SGOT) 27 U/L (<=31); Alanine Aminotransfer ALT/SGPT 34 U/L (<=34); Albumin, Serum 4.3 g/dL (3.5-5.0); Alkaline Phosphatase 74 U/L (35-104); Anion Gap 12 (5-15); BUN 9 mg/dL (4-19); BUN/Creat Ratio 11.7 RATIO (10-20); Calcium,Total 9.3 mg/dL (7.6-11.0); Carbon Dioxide 23.7 mmol/L (21.0-32.0); Chloride 103 mmol/L (98-108); Globulin 2.9 g/dL (2.2-4.2); Glucose 88 mg/dL (70-99); Potassium 4.1 mmol/L (3.3-5.1); Vitamin D,25 Hydroxy 35.1 ng/mL (30-100)
[2025-01-19 18:34] LABS: Cholesterol 168 mg/dL (<=200); Low Density Lipoprotein Calc. 102 mg/dL; Triglycerides 81 mg/dL; Very Low Density Lipoprotein 16 mg/dL (5-40); cholesterol:hdl ratio screen 3.37
== END | disposition home or self-care (01) ==
LOC: LAB 16:28
PROVIDERS: Referring Provider Internal Medicine Endocrinology, Diabetes & Metabolism; Visit Provider Internal Medicine Endocrinology, Diabetes & Metabolism
DX: E11.65 Type 2 diabetes mellitus with hyperglycemia (principal); E03.8 Other specified hypothyroidism; E06.3 Autoimmune thyroiditis
CPT/HCPCS: 36415; 80053; 80061; 82043; 82306; 82570; 84439; 84443